=== PATIENT | female | born 1995 | race Caucasian/White ===

== ENCOUNTER 2017-11-16 12:22 | Inpatient (IN) | payer OTHER ==
[~2017-11-16 12:22] MED LIST: ISOVUE-370 76%-LOCM 1 ML ONE
[2017-11-16] MEDS ORDERED: Midazolam HCl 2 mg/2 ml Vial ONE ×2 (12:35→13:14)
[2017-11-16 12:52] LABS: Actual Bicarbonate (HCO3a) 20.9 mEq/L (22-26); Base Excess (BEa) -5.4 mEq/L (0 (+/-) 2.5); CO2 Tension 43.8 mmHg (35.0-45.0); Hematocrit-ABG 42.3 % (36.0-47.0); Hemoglobin (Hb) 12.9 g/dL (12.0-16.0); O2 Tension (PaO2) 171.2 mmHg (80.0-100.0)
[2017-11-16 12:53] LABS: Analyzer IN Cardio ER; Calcium, Ionized 1.1 mmol/L (1.12-1.30); Puncture Site RRA
[2017-11-16] MEDS ORDERED: fentaNYL Citrate/PF 2,000 MCG in Sodium Chloride 0.9% 60 ML IV SCH ×2 (13:01→15:04)
[2017-11-16 13:05] LABS: BHCG - Serum Negative (NEGATIVE); Pregs Control Background? CLEAR/WHITE (CLR/WHITE); Pregs Control Bar Appear? YES (CONTROL BAR)
[2017-11-16 13:08] LABS: ALT (SGPT) 27 U/L (8-55); AST (SGOT) 26 U/L (5-34); Albumin 3.8 g/dL (3.5-5.0); Alkaline Phosphatase 183 U/L (40-150); Anion Gap 13 mmol/L (10-20); BUN (Urea Nitrogen) 6 mg/dL (7.0-18.7); Bilirubin, Total 0.6 mg/dL (0.2-1.2); Calc. Creatinine Clearance 0 mL/min (70-130); Calcium 8.5 mg/dL (7.8-10.44); Carbon Dioxide 22 mmol/L (22-29); Chloride 105 mmol/L (98-107); Estimated GFR-MDRD Greater than 90; Globulin 3.5 g/dL (2.4-3.5); Glucose 164 mg/dL (70-105); Hemoglobin 14.4 g/dL (12.0-16.0); Lipase 4 U/L (8-78); Mean Corpuscular HGB CONC 31.8 g/dL (32.0-36.0); Mean Corpuscular Hemoglobin 27.8 pg (27.0-31.0); Mean Corpuscular Volume 87.4 fl (81.0-99.0); Mean Platelet Volume 9.1 fL (7.4-10.4); Platelet Count 368 thou/uL (130-400); Potassium 3.9 mmol/L (3.5-5.1); Protein, Total 7.3 g/dL (6.0-8.3); RBC Distribution Width 13.2 % (11.5-14.5); Red Blood Cell (RBC) Count 5.19 mill/uL (4.20-5.40); Sodium 136 mmol/L (136-145); White Blood Cell (WBC) Count 32.9 thou/uL (4.8-10.8)
[2017-11-16 13:16] LABS: Band 10 % (5-11); Large Platelets SLIGHT; Lymphocytes 3 % (21-51); MDiff Complete? YES; Monocytes 6 % (0-10); Neutrophil 80 % (42-75); PLT Morphology Comment Appears Adequate; RBC Morphology Normal; Reactive Lymphocytes 1 % (0-10); Vacuoles SLIGHT
[2017-11-16 13:19] LABS: Bilirubin Negative (Negative); Blood, Urine Negative (Negative); Clarity CLEAR (Clear); Glucose, Urine (Dipstick) 250 mg/dL (Negative); Leukocyte Negative (Negative); Nitrite Negative (Negative); Protein, Urine (Dipstick) 100 mg/dL (Neg-Trace); Specific Gravity, Urine 1.026 (1.002-1.036)
[2017-11-16 13:21] LABS: Bacteria/HPF None Seen HPF (None Seen); Hyaline Casts/LPF 4-6 HYALINE CAST LPF (0-3 Hyaline); Pathc Cast-AUWi Flag 1.21 (0-2.49); RBC/HPF 0-3 HPF (0-3); WBC/HPF 0-3 HPF (0-3)
[2017-11-16 13:26] LABS: Thyroid Stimulating Hormone 1.2769 uIU/mL (0.35-4.94)
[2017-11-16 13:31] LABS: Amphetamine Not Detected (NotDetected); Barbiturates Screen Not Detected (NotDetected); Benzodiazepine Screen Not Detected (NotDetected); Cocaine Metabolite Screen Not Detected (NotDetected); Medtox Control Line Valid? VALID (VALID); Medtox Reader # READER 1; Methadone Not Detected (NotDetected); Methamphetamine Not Detected (NotDetected); Opiate Screen Not Detected (NotDetected); Oxycodone Screen Not Detected (NotDetected); Phencyclidine (PCP) Not Detected (NotDetected); THC/Cannabinoid Screen Not Detected (NotDetected); Tricyclic Screen Not Detected (NotDetected)
[2017-11-16 13:32] LABS: CKMB 0.9 ng/mL (0-6.6); Troponin I 0.072 ng/mL (< 0.028)
--- NOTE | 2017-11-16 14:29 | RAD ---
PORTABLE SUPINE FRONTAL CHEST RADIOGRAPH: Date: 11/16/17 COMPARISON: None. HISTORY: Bladder infection, cyanosis, and hypoxia. FINDINGS: There is an endotracheal tube present, distal tip in the region of the right mainstem bronchus. There is complete opacification of the left hemithorax which may signify volume loss. Right lung appears c lear. Extensive Disla rods are present, incompletely imaged, overlying the entire thoracic spine and the imaged lumbar spine. The Disla prasad on the left is fractured near the thoracolumbar junc tion. IMPRESSION: Low lying endotracheal tube, extending into the right mainstem bronchus, with complete opacification of the left hemithorax. Dr. Rees made aware at 1255 hours on 11/16/17. CODE CR. POS: [facility]
[2017-11-16] MEDS ORDERED: VANCOMYCIN IVPB PRN (14:34)
[2017-11-16] MEDS ORDERED: Sedation Protocol FS ONE (14:34)
[2017-11-16] MEDS ORDERED: CCU Electrolyte Replacement 1 EACH FS ONE (14:34)
[2017-11-16] MEDS ORDERED: Magnesium Oxide 400 MG TAB PO PRN ×2 (15:04)
[2017-11-16] MEDS ORDERED: Potassium Phosphate 12 MMOL in Sodium Chloride 0.9% 250 ML 250 ML IV PRN (15:04)
[2017-11-16] MEDS ORDERED: Morphine 2 MG/ML SYRINGE SLOW IVP PRN (15:04)
[2017-11-16] MEDS ORDERED: Fentanyl BOLUS 250 ML IVPB PRN (15:04)
[2017-11-16] MEDS ORDERED: DISCONTINUE PREVIOUS NARCOTIC PAIN MEDICATIONS AND BENZODIAZEPINES FS SCH (15:04)
[2017-11-16] MEDS ORDERED: Potassium Phosphate 15 MMOL in Sodium Chloride 0.9% 250 ML 250 ML IV PRN (15:04)
[2017-11-16] MEDS ORDERED: Magnesium 2 GM/NS 0.9% 100 ML 2 GM in Premix Bag 1 BAG IVPB PRN (15:04)
[2017-11-16] MEDS ORDERED: Potassium Chloride 40 MEQ in Sodium Chloride 0.9% 250 ML 250 ML IVPB PRN (15:04)
[2017-11-16] MEDS ORDERED: CCU ELECTROLYTE REPLACEMENT PROTOCOL FS PRN (15:04)
[2017-11-16] MEDS ORDERED: Propofol 1,000 MG/100 ML VIAL IV PRN (15:04)
[2017-11-16] MEDS ORDERED: Potassium Phosphate 9 MMOL in Sodium Chloride 0.9% 100 ML IVPB PRN (15:04)
[2017-11-16] MEDS ORDERED: Potassium Chloride 20 MEQ TAB PO PRN (15:04)
[2017-11-16] MEDS ORDERED: Lorazepam 2 MG/ML VIAL SLOW IVP PRN (15:04)
[2017-11-16] MEDS ORDERED: Potassium Chloride 40 MEQ in Premix Bag 1 BAG IVPB PRN (15:04)
--- NOTE | 2017-11-16 15:06 | RAD ---
SHUNTOGRAM: Date: 11/16/17 HISTORY: Cough, hypoxia. FINDINGS/IMPRESSION: Two images of the skull, one frontal view of the neck, chest, abdomen, and pelvis were performed. There is right-sided ventriculoperitoneal shunt which appears intact, but terminates inferiorly in th e right lower neck/region of right lung apex. The superior aspect of the shunt tubing in the right st ops short of crossing the midline in the cranium. There are postop changes of median sternotomy and spinal fusion rods in the thoracolumbar spine. The left-sided prasad is fractured at the T8-T9 level. Air is noted in loops of small and large bowel. There is an opacity in the left upper lobe. Endotracheal tube and nasogastric tube are present. POS: [facility]
[2017-11-16] MEDS: Sodium Chloride 0.9% 1,000 ML IV SCH ×2 (15:34→20:06)
--- NOTE | 2017-11-16 15:49 | CT ---
CT BRAIN WITHOUT CONTRAST: 11/16/17 HISTORY: Altered mental status. FINDINGS: No prior. A right frontal ventriculoperitoneal shunt catheter is seen with tip anteriorly between the two later al ventricles. 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 No defin ite acute infarct, hemorrhage, midline shift, or abnormal extra-axial fluid collections are seen. The bony calvarium is intact. A Chiari malformation cannot be excluded. MRI would be helpful. IMPRESSION: No evidence of acute intracranial process. POS: [facility]
[2017-11-16] MEDS ORDERED: Vancomycin HCl 1.25 GM in Sodium Chloride 0.9% 250 ML 250 ML IVPB SCH (16:00)
[2017-11-16 16:02] VITALS: BMI 30.2
--- NOTE | 2017-11-16 16:16 | CT ---
CT PULMONARY ANGIOGRAM WITH IV CONTRAST AND 3D POSTPROCESSIN11/16/17 HISTORY: Hypoxia, altered mental status, cyanosis. FINDINGS: There is no filling defects seen in the pulmonary arterial vasculature to suggest pulmonary embolism. Intrathoracic aorta is well opacified without aneurysm or dissection. No pleural or pericardial effu sions are seen. There are patchy infiltrates in the lung guerrero most prominent in the left upper lobe . There are postop changes and metallic hardware in the spine. IMPRESSION: No evidence of pulmonary embolism. POS: [facility]
--- NOTE | 2017-11-16 16:17 | PDOC.FPRHP ---
- History of Present Illness Chief Complaint: suspected seizure History of Present Illness: 21 yo f with pmhx of spina bifida with lower extremity paraplegia who presents via EMS intubated and sedated s/p seizure like activity. Her brother saw the incident at home where she suddenly became unresponsive, looked off staring into space and then started gurgling at the mouth. She became stiff but did not have any jerking. She went unconscious and her mother started doing CPR. EMS arrived and provided CPR and achieved ROSC. She was intubated in the field. She has a pmhx of seizures of which she takes carbamazepine for. She has a OFFICE RUNNER shunt , originally placed at that extended to her stomach, but in 2014 had a new [facility] shunt placed into her right atrium. - Allergies/Adverse Reactions Allergies Allergy/AdvReac Type Severity Reaction Status Date / Time latex Allergy Verified 05/20/15 12:41 - Home Medications Medication Instructions Recorded Confirmed Type Oxybutynin Chloride [Ditropan XL] 10 mg PO DAILY 05/20/15 11/16/17 History carBAMazepine [Tegretol] 200 mg PO BID 05/20/15 11/16/17 History Cephalexin [Keflex] 500 mg PO Q12H 11/16/17 11/16/17 History - History PMHx: 1. Spina bifida with bilateral lower extremity paraplegia 2. Hx of seizures PSHx: 1. OFFICE RUNNER shunt to stomach placed at 2. 2015-[facility] shunt (new) placed that extends into right atrium 3. [place] Rods placed in 2008 4. Ureter reattachment FHx: 1. non contributory Social: 1. no alcohol, drug or smoking hx - Review of Systems ROS unobtainable: due to endotracheal tube (obtained from mother and father) General: denies: fever/chills, weight/appetite/sleep changes Eyes: denies: eye pain, vision changes ENT: denies: nasal congestion, rhinorrhea Respiratory: denies: cough, congestion Cardiovascular: denies: chest pain, palpitation, edema Gastrointestinal: denies: nausea, vomiting, diarrhea Genitourinary: reports: other (recent UTI; hx of neurogenic bladder) Skin: denies: rashes, lesions Musculoskeletal: denies: pain, tenderness Neurological: reports: seizure. denies: numbness Psychological: denies: anxiety, depression - Vital signs BP: 113/74 HR: 88 (low 50s to 140) RR: 14-28 Tmax: 98.5 Pox: 100% on SIMV Wt: 75kg - Physical Exam Constitutional: NAD -Constitutional: intubated and sedated HEENT: normocephalic and atraumatic Neck: no thyromegaly Chest: no-tender to palpation Heart: RRR, normal S1/S2 Lungs: CTAB, no respiratory distress Abdomen: soft, non-tender, bowel sounds present -Musculoskeletal: bilateral lower extremity paraplegia Neurological: other (GCS 10) -Neurological: lower extremity paraplegia Skin: no rash/lesions, capillary refill <2 seconds Heme/Lymphatic: no unusual bruising or bleeding, no purpura FMR H&P: Results - Labs Result Diagrams: 11/16/17 12:44 11/16/17 12:44 Lab results: WBC 32.9 thou/uL (4.8-10.8) H 11/16/17 12:44 Hgb 14.4 g/dL (12.0-16.0) 11/16/17 12:44 Hct 45.4 % (36.0-47.0) 11/16/17 12:44 MCV 87.4 fl (81.0-99.0) 11/16/17 12:44 Plt Count 368 thou/uL (130-400) 11/16/17 12:44 Band Neuts % (Manual) 10 % (5-11) 11/16/17 12:44 ABG pH 7.30 (7.35-7.45) L 11/16/17 12:46 ABG pCO2 43.8 mmHg (35.0-45.0) 11/16/17 12:46 ABG pO2 171.2 mmHg (80.0-100.0) H 11/16/17 12:46 Sodium 136 mmol/L (136-145) 11/16/17 12:44 Potassium 3.9 mmol/L (3.5-5.1) 11/16/17 12:44 Chloride 105 mmol/L (98-107) 11/16/17 12:44 Carbon Dioxide 22 mmol/L (22-29) 11/16/17 12:44 BUN 6 mg/dL (7.0-18.7) L 11/16/17 12:44 Creatinine 0.63 mg/dL (0.6-1.1) 11/16/17 12:44 Glucose 164 mg/dL (70-105) H 11/16/17 12:44 Lactic Acid 2.9 mmol/L (0.5-2.2) H 11/16/17 12:44 Calcium 8.5 mg/dL (7.8-10.44) 11/16/17 12:44 Total Bilirubin 0.6 mg/dL (0.2-1.2) 11/16/17 12:44 AST 26 U/L (5-34) 11/16/17 12:44 ALT 27 U/L (8-55) 11/16/17 12:44 Alkaline Phosphatase 183 U/L (40-150) H 11/16/17 12:44 CK-MB (CK-2) 0.9 ng/mL (0-6.6) 11/16/17 12:44 Serum Total Protein 7.3 g/dL (6.0-8.3) 11/16/17 12:44 Albumin 3.8 g/dL (3.5-5.0) 11/16/17 12:44 Lipase 4 U/L (8-78) L 11/16/17 12:44 Urine Ketones Trace mg/dL (Negative) H 11/16/17 13:05 Urine Blood Negative (Negative) 11/16/17 13:05 Urine Nitrite Negative (Negative) 11/16/17 13:05 Ur Leukocyte Esterase Negative (Negative) 11/16/17 13:05 Urine RBC 0-3 HPF (0-3) 11/16/17 13:05 Urine WBC 0-3 HPF (0-3) 11/16/17 13:05 Ur Squamous Epith Cells 7-10 HPF (0-3) H 11/16/17 13:05 Urine Bacteria None Seen HPF (None Seen) 11/16/17 13:05 - Radiology Interpretation CT scan - head Status: report reviewed by me (right frontal lobe ventriculo arterial shunt seen ; no evidence of acute intracranial process) Chest x-ray Status: image reviewed by me (low lying endotracheal tube in the right mainstem bronchus) Other Additional comment: echo:60-65% mild TR mildly elevated pulm arterial pressure FMR H&P: A/P - Problem List (1) Seizure Status: Acute Code(s): R56.9 - UNSPECIFIED CONVULSIONS (2) Spina bifida Status: Acute Code(s): Q05.9 - SPINA BIFIDA, UNSPECIFIED (3) ventricular arterial shunt Status: Acute (4) T8 ryan olayinka fracture Status: Acute (5) History of spinal fusion for scoliosis Status: Acute Code(s): Z98.1 - ARTHRODESIS STATUS; Z87.39 - PERSONAL HISTORY OF DISEASES OF THE MS SYS AND CONN TISS - Plan 21 yo f with a pmhx of spina bifida presents s/p suspected seizure, intubated and sedated in the field, admitted for suspected seizure and posible sepsis without a source. 1.)Suspected seizure- -Pt s/p one round of CPR, with ROSC obtained, intubated and sedated currently -GCS 10 -procalcitonin ordered -Pt is currently on a versed and fentanyl drip -Concern for infectious vs malfunctioning ventricular atrial shunt -Pt was being treated with keflex for a UTI -Neurosurgery and Pulm crit care consulted, appreciate recs -We will treat with empiric vanc and zosyn and send blood and urine cultures -Repeat cbc and cmp in the am 2.)T8 Ryan Olayinka fracture- -Pt had a scoliosis fusion surgery in 2008 and on imaging today found to have a fracture in the olayinka at the T8 level FMR H&P: Upper Level - Pertinent history Pt is a 21 yo CF with hx spina bifida extensively managed by [facility] in [place] who was brought in via EMS after family performed brief CPR due to her turning blue during seizure-like event. Father stated that he is unsure if pulses were actually palpated properly by the mother. She performed the CPR. Described hx seizures that have been well controlled on tegretol until seizure today. Pt was intubated in the field and started on versed and fentanyl due to agitation in ED. Parents endorse hx of multiple UTIs and is on day 3 of Keflex treatment at the moment. Unsure who is treating this. Was given number for pt's neurologist that the family endorsed seeing in last couple days but this was actually a neurosurgeon that last saw her in '. She has ventricular atrial shunt with possible concern for malfunction. Pt was admitted to CCU for futher workup/treatment. - Pertinent findings Gen: intubated, GCS 10 Neck: Shunt palpable along R side of neck CV: RRR except brief periods of tachycardia, no m/r/g Lungs: CTAB Abd: soft, ND Ext: no edema - Plan Date/Time: 11/16/17 1617 1. Acute respiratory failure intubated due to failure to protect airway and need for sedation due to agitation in ED per records. Suspected related to recent seizure vs potential infection vs ventricular atrial shunt malfunction. Admitted to CCU with expected >2 day stay. 2. Sudden cardiac arrest s/p ROSC unclear if pulselessness actually occurred. CPR stopped when EMS arrived and felt pulse. Pt was having seizure-like episode and not breathing which family says is common during these episodes. Cardiac consult placed. Trop negative. Monitor closely. Pt is having sudden runs of tachycardia on tele monitoring. 3. Seizure disorder well controlled in recent past. Appears to have had another seizure today. Unsure if related to shunt malfunction, infection, or simply from seizure disorder. Considering transfer to [facility] as all care has been there prior to this. Neurosurgery consulted about her shunt and without seeing prior imaging, did not feel comfortable assessing if it was working. Tegretol level therapeutic. Prolactin normal but was 4-6 hours after episode due to issue with blood draws. 4. UTI on day 3 of treatment with oral Keflex. Will broaden coverage as WBC 32 with 10% bandemia. UA today not obviously showing infection. Elevated lactate also present. Could be early sepsis picture. IV fluids, BCx, UCx. 5. Spina bifida managed by spina bifida clinic in [place]. Attempting to transfer to [place] due to complexity and specialists here uncomfortable providing care without access to more complete records. Higher level of care being sought. 6. Ventricular atrial shunt See #3. Spoke with neurosurgeon in [place] who placed the shunt in 15. Endorsed not having seen the pt since the surgery and is not the best to speak with about the case. He did state that an XR shuntogram was not helpful in saying if the shunt was working properly. He was also in favor of transfer to their facility for further evaluation if needed. 7. T8 ryan olayinka fracture Pts neurosurgeon states this is managed by ortho in [place]. Family unaware of this fracture. This is another reason transfer felt necessary as no prior images available for comparison. I, Wu Gr, have evaluated this patient and agree with findings/plan as outlined by sports team marketing intern resident. Pertinent changes/additions are listed here. Attending Addendum - Attending Addendum Date/Time: 11/17/17 0646 I personally evaluated the patient and discussed the management with Dr. Barr and Dr. Gr on 10/16/17 upon the patient's arrival to the ICU. I agree with the History, Examination, Assessment and Plan documented above with any addition or exceptions noted below. The patient suffered a cardiac arrest following seizure like activity at home. CPR was performed and ROSC achieved. She was intubated. She has a shunt from her ventricle to right atrium but we are unsure if it is functional. All of her care has been at [facility] and after consultation with Pulmonology, Neurosurgery and Cardiology it was decided to transfer to [facility] where her specialists are located. She is on broad spectrum antibiotics and is sedated. Cultures are pending.
[2017-11-16] MEDS: Piperacillin/Tazobactam 3.375 GM in Sodium Chloride 0.9% 100 ML IVPB SCH ×2 (16:21→20:33)
--- NOTE | 2017-11-16 16:33 | CON ---
DATE OF CONSULTATION: 11/16/2017 This is 1 hour and 15 minutes critical care time. CONSULTING PHYSICIAN: Emergency room physician. REASON FOR CONSULTATION: Status post cardiac arrest with return of spontaneous circulation. HISTORY OF THE PRESENT ILLNESS: The patient is a 21-year-old white female with lifelong spina bifida and developmental disorder. She functions at the level of 4-year-old. Today, she was on the couch when she had a seizure-type spell. The family says she went apneic, she turned blue. CPR was starte d while they were calling 911 and the paramedics arrived, it was felt the patient did not have a puls e. CPR continued for an unknown amount of time before returns spontaneous circulation was achieved. The patient is currently intubated with a 6.0 endotracheal tube. In the field, this was pushed in t he right main stem bronchus, but has subsequently been withdrawn. She is currently on mechanical pancho tilation, lightly sedated. PAST MEDICAL AND SURGICAL HISTORY: 1. Spina bifida. 2. Multiple urinary tract infections. 3. Seizure disorder with good control over the last several years. 4. Ventricular peritoneal shunt placement with subsequent revision because of MRSA infection in the abdomen, a couple of years ago. 5. Ventricular atrial shut now in place. 6. No known cardiac problems in the past. 7. No known pulmonary problems in the past. SOCIAL HISTORY: Nonsmoker, does not consume alcohol, does not use illicit drugs. ALLERGIES: LATEX. MEDICATIONS: Prior to admission, oxybutynin 10 mg daily, carbamazepine 200 mg ER by mouth twice rox y. REVIEW OF SYSTEMS: Twelve-point review of systems is unobtainable as the patient cannot speak at thi s time. PHYSICAL EXAMINATION: VITAL SIGNS: Temperature 98, pulse 97, blood pressure 127/75, O2 sat 100% and respiratory rate 19. GENERAL: The patient will open eyes. She is on mechanical ventilation. She is intubated with a 6.0 endotracheal tube. HEENT: Somewhat disheveled appearance. NECK: No adenopathy or JVD, no bruits. Shunt is palpable along the right side of the neck. CARDIOVASCULAR: S1 and S2. Sinus most of the time with intermittent periods of bradycardia. LUNGS: Clear without rhonchi. ABDOMEN: Soft, obese and nontender. EXTREMITIES: Severe muscle wasting in the legs. LABORATORY DATA: White blood cell count 32.9, hematocrit 45.4 and platelet count 368. ABG: PH 7.30 , pCO2 of 43, PO2 of 171, SIMV rate 14, tidal volume 350, PEEP 5, pressure support 10 and FiO2 100%. Sodium 136, potassium 3.9, chloride 105, CO2 of 22, BUN 6, creatinine 0.6, glucose 164, alkaline hector sphatase 183 and troponin 0.072. Urinalysis shows glucosuria. Tox screen was negative. IMAGING DATA: Chest x-ray as determined by the last view, the shuntogram shows improvement atelectas is in the left after the ET tube was withdrawn. It was subsequently withdrawn a little bit more. Br ain CT result is pending, but shows dilated ventricles and the shunt is visible. The results of the CT pulmonary angiogram are pending at this time. Images are not available for review. ASSESSMENT: 1. Sudden arrest - appears to have been a seizure episode. I cannot rule out the possibility of und erlying sepsis from a recurrent urinary tract infection for which the patient has been taking Cipro. 2. Successful return of spontaneous circulation. 3. History of ventriculoperitoneal shunt placement. 4. History of spina bifida. PLAN: 1. Neurosurgery consult to see their opinion in regards to this functioning of the shunt. 2. Cardiology consultation to evaluate the cardiac arrest and bradycardia. 3. Sepsis workup. 4. Workup for adrenal insufficiency. 5. Empiric antibiotic therapy. 6. Check Tegretol level. 7. Generalized supportive care with mechanical ventilation. 8. Consider trading out endotracheal tube for a larger tube if ventilation is prolonged.
[2017-11-16 16:46] LABS: Lactic Acid 2.1 mmol/L (0.5-2.2)
[2017-11-16 16:56] LABS: Carbamazepine-Tegretol 7.2 ug/mL (4.0-12.0)
[2017-11-16 17:18] VITALS: BP 113/74
--- NOTE | 2017-11-16 17:34 | CON ---
CARDIOLOGY CONSULTATION NOTE DATE OF CONSULTATION: 11/16/2017 REASON FOR CONSULTATION: ? cardiac arrest versus respiratory arrest. HISTORY OF PRESENT ILLNESS: Ms. Allan is a pleasant 21-year-old woman with a history of spina bifi da and developmental delay. The patient was at home, apparently had a seizure, then stopped breathin g and then lost blood pressure and pulse. The patient was successfully resuscitated as is outlined i n the chart. I have been consulted about possible cardiac etiology. The patient is currently intubated on the ventilator. PAST MEDICAL HISTORY: 1. Spina bifida. 2. Developmental delay, according to the functions at approximately the level of 4-year-old. 3. History of [employer] shunt later revised to apparently drain into the superior vena cava. REVIEW OF SYSTEMS: Not obtainable, intubated on the ventilator. ALLERGIES: LATEX. PHYSICAL EXAMINATION: GENERAL: This is a 21-year-old woman. She is intubated on the ventilator. She is awake and follows directions. VITAL SIGNS: Blood pressure 119/83, pulse 80. She did have some transient junctional rhythm in the 40s earlier. EYES: Sclerae nonicteric. MOUTH: Mucous membranes moist. LUNGS: Some rhonchi. No wheezing. CARDIAC: Normal S1, normal S2. I do not hear a murmur, rub or gallop. ABDOMEN: Soft and nontender. EXTREMITIES: No clubbing or cyanosis. There is no significant edema. The patient has paralysis of her lower extremities, lifelong due to spina bifida. LABORATORY AND IMAGING DATA: Troponin level 0.072. EKG was normal. Echocardiogram showed normal le ft ventricular function, normal echo. There is trace to mild tricuspid insufficiency, pulmonary ramesh ry pressure low 30s systolic, slightly elevated. ASSESSMENT: 1. Cardiac versus respiratory arrest of unclear etiology, ? did the patient have seizure and stopped breathing precipitating the loss of consciousness, unclear at this point. 2. History of shunting as outlined above. PLAN: Continue current medical regimen. Plans are apparently being made to send her back to the [facility] that takes care of her usually. No other recommendations at this point.
--- NOTE | 2017-11-16 17:44 | RAD ---
PORTABLE CHEST: 11/16/17 HISTORY: Reassess ET tube placement. COMPARISON: Exam at 12:29 p.m. ET tube has been retracted and now resides above the tyler. Heart is mildly prominent with postop st ernotomy changes and mild vascular engorgement. The opacification of the left hemithorax has resolved and there is now aeration in the left lung. IMPRESSION: Improvement in the lung guerrero when compared to earlier film. Both lungs are now aerated with mild pe rihilar engorgement. POS: [facility]
--- NOTE | 2017-11-16 18:26 | CON ---
DATE OF CONSULTATION: 11/16/2017 HISTORY OF PRESENT ILLNESS: Ms. Allan is a 21-year-old female, who we were consulted by this after noon that has a lifelong history of spina bifida and developmental disorder. She functions at [facility] at level of a 4-year-old. Today, she was at her house and she had a seizure-type spell in which s he got very tense and had a staring spell. The family says that she turned apneic and her lips turne d blue. CPR was initiated while 911 was being called, paramedics arrived and felt the patient did no t have a pulse, so CPR was continued for unknown amount of time until spontaneous circulation was ach ieved. She was intubated with 6.0 endotracheal tube in the field and it was pushed into the right ma instem bronchus, but has subsequently been withdrawn. She is currently on mechanical ventilation and slightly sedated. She has a prior history of a thoracic fusion for scoliosis and she had that done at [facility] in [place]. On the shuntogram, it shows that the left-sided Disla prasad of the fusion has been fractured at the T8-T9 level. The patient had a ventriculoperitoneal shunt all of he r life since and had it revised in 2014 after developing a MRSA in the abdomen. [facility] and the surgeons created a ventriculoatrial shunt by putting it in the jugular vein. A shuntogram was completed that showed right-sided ventriculoperitoneal shunt appeared intact. CT of the brain was also completed and showed no evidence of acute intracranial process. She has a r ight ventriculoperitoneal shunt in place. She has no prior imaging at this hospital or the [facility]. All of her imaging was recently updated at [facility], where she has bee receiving all of her care. Neurosurgery was consulted for the findings on the CT scan and shuntogr am. PAST MEDICAL AND SURGICAL HISTORY: 1. Spina bifida. 2. Multiple urinary tract infections. 3. Seizure disorder with good control over the past several years. 4. Ventriculoperitoneal placement with subsequent revision of MRSA infection of the abdomen a couple years ago and now has a ventriculoatrial shunt in place. 5. No known cardiac problems in the past. 6. No known pulmonary problems in the past. ALLERGIES: LATEX allergy. SOCIAL HISTORY: The patient is a nonsmoker. Does not consume alcohol and does not use illicit drugs . MEDICATIONS: 1. Oxybutynin 10 mg daily. 2. Carbamazepine 200 mg ER by mouth twice daily. REVIEW OF SYSTEMS: Twelve point review of systems is unobtainable as the patient cannot speak at thi s time. PHYSICAL EXAMINATION: VITAL SIGNS: Reviewed. Temperature is 98, pulse is 97, blood pressure is 127/75, O2 sat is 100%, an d respiratory rate is 19. Heart rate has been variable in the time that I have seen her ranging from 50 to 147. Cardiology has been consulted. GENERAL: The patient is awake. She can open her eyes. She is on mechanical ventilation, lightly se dated, but she does follow commands. HEENT: Somewhat disheveled appearance. Head is normocephalic, atraumatic. Hearing is intact. Mois t mucous membranes. Trachea is midline. Eyes: Pupils are equal and reactive to light. Extraocular muscles are intact. Sclerae are white, nonicteric. CARDIOVASCULAR: The patient has regular rate and rhythm, normal S1, S2 heart sounds. The patient is variable between bradycardia and tachycardia. LUNGS: The patient has bilateral symmetric chest rise, appears to have no shortness of breath. EXTREMITIES: The patient has muscle wasting in the upper and lower extremities bilaterally. IMAGING: X-ray shows shuntogram and the shuntogram shows improved atelectasis in the left after ENT tube was withdrawn. Subsequent CT brain shows dilated ventricles, but no intracranial process, shunt is visible. CT pulmonary angiogram is pending. ASSESSMENT: 1. Sudden arrest appears to have had a seizure episode, status post CPR and successful return of spo ntaneous circulation. 2. History of ventriculoperitoneal shunt placement and revision to a ventriculoatrial shunt placed. 3. History of spina bifida. PLAN: I have talked to Dr. Morris, reviewed the images of the patient. We will need to make a de cision on whether the shunt is involved in her seizure episode. We will need imaging from [facility]. We will leave it up to the family whether they want to be transferred to [facility] for further care. We can treat the UTI. We will not operate on the ventriculoatrial shunt vasile olga without looking at prior CT scans. If there are any further questions, please feel free to conta ct Neurosurgery.
[2017-11-16] MEDS ORDERED: Atropine Sulfate 1 mg/10 ml Syringe IVP PRN (19:25)
[2017-11-16 20:27] VITALS: TEMP 98.8
--- NOTE | 2017-11-16 21:30 | HP ---
DATE OF SERVICE: 11/16/2017 CHIEF COMPLAINT: Cardiac arrest with return of spontaneous circulation. HISTORY OF PRESENT ILLNESS: The patient is a 21-year-old female with spina bifida and seizure disord er with developmental delay who was found to have a seizure-like spell at home where she stopped kristopher thing and then turned blue. Family member at home started CPR for approximately 1 minute before they have palpated, the patient did have a pulse. At some point, she was intubated and brought to the ER . In the ER, she was found to have a white count of 32,000. She is a regular patient of [facility] and her entire Neurology team is at that facility and she gets all of her care for UTE gracia and her spina bifida at [facility]. There is a history of the patient having had UTI as an outpatient for which she has been taking Keflex. A urinalysis in the ER showed no white blood cells , no nitrites, no leukocytes and no bacteria. The patient is currently intubated in the ICU and cynthia gennaro with [employer]. During the course of her time in the ER and up in the ICU, her heart rate is varied . Her heart rate will drop down into the 40s-50s and then go up into the upper 100s. EKG when she w as tachycardic showed sinus tachycardia. For the full past medical history, past surgical history, social history, allergies, medications and review of systems, please see the resident's dictation. PHYSICAL EXAMINATION: VITAL SIGNS: Temperature 98.6, pulse 88, blood pressure 127/75, O2 sat 100%. GENERAL: The patient is intubated on the vent, but opens eyes when we call her name. HEENT: The patient has an endotracheal tube and OG tube in place. NECK: Supple, without lymphadenopathy or bruits, but shunt is palpable along the right side of her n zev. CARDIOVASCULAR: Regular rate and rhythm without murmurs, but she has intermittent bradycardia follow ed by tachycardia. LUNGS: Clear to auscultation without wheezing or rhonchi. ABDOMEN: Soft, nontender and nondistended. EXTREMITIES: There is no clubbing or cyanosis. NEUROLOGIC: It is difficult to assess secondary to the patient being sedated. LABORATORY AND X-RAY FINDINGS: 1. CBC: WBCs 32.9, hemoglobin 14.4, hematocrit 45.4, platelets 368. 2. CMP: Sodium 136, potassium 3.9, chloride 105, bicarb 22, BUN 6, creatinine 0.63, glucose 164, ca lcium 8.5, mag 2.0, total bilirubin 0.6, AST 26, ALT 27, alkaline phosphatase 183, total protein 7.3, albumin 3.8. 3. Lipase 4. 4. TSH 1.276. 5. Lactic acid was initially 2.9 and then came down to 2.1. 6. Urinalysis significant for protein 100, glucose 250, ketones trace, squamous epithelial cells 7-1 0, hyaline casts 4-6. 7. UDS is negative. 8. CTA of the chest is negative for PE. ASSESSMENT AND PLAN: 1. Cardiac arrest with return of spontaneous circulation: We are uncertain at this time if the ruben ent had a true arrest or if breathing had slowed down following a seizure. At this point in time, wilbert velarde appears to be stable. She will remain intubated for the time being. 2. Seizure disorder: We will check the patient's seizure medication levels. We will monitor for fu rther seizure activity. She has a shunt that apparently goes into her right atrium. Neurosurgery donald s been consulted and they are unsure if the shunt is working appropriately at this time. We have no records from previous scans on this patient as all of her imaging has been done at [facility]. We are in the process of talking with [facility] then trying to get ahold of the patient's neuro logist or neurosurgeon to discuss potential transfer of care from our facility to [facility] as our specialists are not comfortable taking care of the patient and her condition. We know that she h as a team of doctors that regularly see her at [facility]. 3. Possible sepsis: The patient has elevated white count and intermittent elevated pulse. Blood an d urine cultures have been drawn and urinalysis does not indicate infection. There is a history of b eing treated with oral antibiotics as an outpatient for urinary tract infection. The patient will be started on broad spectrum antibiotics of vancomycin and Zosyn and white count will be trended. 4. History of spina bifida: We will try to discuss the patient's case with her specialist in [place] . 5. Cardiology has also been consulted. An echo has been done and the read is pending. 6. Please see the resident's dictation for the full history and physical, assessment and plan.
[2017-11-17] MEDS ORDERED: Pantoprazole 40 MG VIAL IVP SCH (09:00)
[2017-11-17] MEDS ORDERED: Enoxaparin Sodium 40 MG/0.4 ML SYRINGE SC SCH (09:00)
--- NOTE | 2017-11-20 16:44 | EKG ---
Test Reason : Blood Pressure : / mmHG Vent. Rate : 098 BPM Atrial Rate : 098 BPM P-R Int : 118 ms QRS Dur : 094 ms QT Int : 342 ms P-R-T Axes : 059 072 064 degrees QTc Int : 436 ms Poor data quality, interpretation may be adversely affected Normal sinus rhythm with sinus arrhythmia Normal ECG Confirmed by VERONICA LIRA ([id number]) on 11/20/2017 4:43:53 PM Referred By: Confirmed By:VERONICA LIRA
--- NOTE | 2017-11-23 15:04 | EKG ---
Test Reason : Blood Pressure : / mmHG Vent. Rate : 102 BPM Atrial Rate : 102 BPM P-R Int : 150 ms QRS Dur : 098 ms QT Int : 364 ms P-R-T Axes : 023 055 055 degrees QTc Int : 474 ms Sinus tachycardia Otherwise normal ECG Confirmed by ELMA GANN ([id number]), industrial editor MIKEL KIRK ([id number]) on 11/23/2017 3:03:53 PM Referred By: Confirmed By:ELMA GANN
== END 2017-11-16 20:56 | disposition designated cancer center or children's hospital (05) | DRG 871 ==
LOC: ERS 12:22 → CCU 14:05
PROVIDERS: ADMIT Emergency Medicine; ATTEND Emergency Medicine
PROC: 5A1935Z Respiratory Ventilation, Less than 24 Consecutive Hours (ICD-10-PCS; principal; 2017-11-16)
PROC: 0BW Respiratory System, Revision (ICD-10-PCS; 2017-11-16)
DX: A41.9 Sepsis, unspecified organism (principal); I46.9 Cardiac arrest, cause unspecified; R40.2122 Coma scale, eyes open, to pain, at arrival to emergency department; R40.2212 Coma scale, best verbal response, none, at arrival to emergency department; R40.2312 Coma scale, best motor response, none, at arrival to emergency department; G82.20 Paraplegia, unspecified; T84.216A Breakdown (mechanical) of internal fixation device of vertebrae, initial encounter; T85.730A Infection and inflammatory reaction due to ventricular intracranial (communicating) shunt, initial encounter; N39.0 Urinary tract infection, site not specified; T85.628A Displacement of other specified internal prosthetic devices, implants and grafts, initial encounter; T85.9XXA Unspecified complication of internal prosthetic device, implant and graft, initial encounter; N31.9 Neuromuscular dysfunction of bladder, unspecified; G40.909 Epilepsy, unspecified, not intractable, without status epilepticus; Q05.9 Spina bifida, unspecified; Z86.14 Personal history of Methicillin resistant Staphylococcus aureus infection; Z87.440 Personal history of urinary (tract) infections; R62.59 Other lack of expected normal physiological development in childhood
CPT/HCPCS: 36415; 51702; 70450; 71045; 71275; 75809; 80053; 80156; 80306; 81003; 81015; 82533; 82553; 82805; 83605; 83690; 83735; 84146; 84443; 84484; 84703; 85025; 87040; 87086; 93005; 93010; 93306; 94002; 94640; 96365; 96375; 96376; 99292; J2250; J2543; J3010; J3370; J7050